=== PATIENT | female | born 1980 | race Caucasian/White ===

== ENCOUNTER 2021-06-06 09:01 | Inpatient (IN) ==
[2021-06-06] MEDS ORDERED: *HR* LORazepam 2 MG/ML VIAL IVP ONE ×2 (09:20→10:11)
[2021-06-06 09:45] LABS: Basophils # 0.1 K/mcL (0.0-0.2); Eosinophils # 0.1 K/mcL (0.0-0.6); Hematocrit 42.8 % (35.3-44.9); Immature Granulocytes % 0.6 % (0-4); Lymphocytes # 2.2 K/mcL (0.6-4.6); Lymphocytes % 22.4 %; Mean Corpuscular HGB Conc 34.1 g/dL (31.6-35.5); Mean Corpuscular Volume 99.5 fL (83.0-100.0); Mean Platelet Volume 10.2 fL (9.4-12.4); Monocytes # 0.6 K/mcL (0.0-1.3); Monocytes % 5.5 %; Platelet Count 201 K/mcL (140-400); Segmented Neutrophils % 69.5 %
[2021-06-06 09:46] LABS: Bilirubin,Urine Negative (Negative); Blood,Urine Trace (Negative); Clarity,Urine Clear (Clear); Color,Urine Light-Yellow (Yellow); Glucose,Urine (UA) Normal (Normal); Ketones,Urine Negative (Negative); Leukocyte Esterase,Urine Negative (Negative); Mucus,Urine Few per lpf (None-Few); Nitrite,Urine Negative (Negative); Protein,Urine Negative (Neg-Trace); RBC,Urine 0-3 per hpf (0-3); Squamous Epithelial Cell,Urine Few per hpf (None-Few); Urobilinogen,Urine Normal (Normal); WBC,Urine 0-3 per hpf (0-3)
[2021-06-06 09:46] LABS: Hemoglobin 14.6 g/dL (11.5-15.4)
[2021-06-06 09:53] LABS: Prothrombin Time 11.6 Seconds (9.4-12.1)
[2021-06-06 09:56] LABS: Activated Partial Thrombo Time 32.5 Seconds (26.0-36.0)
[2021-06-06 10:05] LABS: Estimated Average Glucose 94 mg/dl; Hemoglobin A1C 4.9 %
[2021-06-06 10:08] LABS: Acetaminophen < 10 mcg/mL (10-20); BUN/Creatinine Ratio 18 (6-26); Blood Urea Nitrogen 14 mg/dL (6-20); Calcium 9.3 mg/dL (8.6-10.3); Carbon Dioxide 25 mEq/L (23-29); Chloride 103 mEq/L (98-107); Chol/HDL Ratio 1.7 (0-4.9); Cholesterol 135 mg/dL (< 200); Ethanol < 10 mg/dL (Less than 10); Glucose 114 mg/dL (70-105); HDL Cholesterol 78 mg/dL (40-59); LDL Cholesterol,Calculated 48 mg/dL (< 100); Lipase 28 Units/L (11-82); Osmolality,Calculated 279 (280-300); Salicylate < 2.5 mg/dL (15.0-30.0); Sodium 134 mEq/L (136-145); Triglycerides 46 mg/dL (< 150); Troponin I < 0.03 ng/mL (< 0.04); eGFR For African Americans > 60 (> 60); eGFR For Non-African Americans > 60 (> 60)
[2021-06-06 10:20] LABS: Thyroid Stimulating Hormone 0.638 mcIU/mL (0.340-5.600)
[2021-06-06 10:33] LABS: Amphetamine Screen,Urine Negative ng/mL (Cutoff=1000); Barbiturate Screen,Urine Negative ng/mL (Cutoff=200); Benzodiazepines Screen,Urine Negative ng/mL (Cutoff=200); Cannabinoid Screen,Urine Positive ng/mL (Cutoff = 50); Cocaine Screen,Urine Negative ng/mL (Cutoff= 300); Opiate Screen,Urine Negative ng/mL (Cutoff=300); Phencyclidine Screen,Urine Negative ng/mL (Cutoff=25)
[2021-06-06 13:13] LABS: Influenza A PCR Negative (Negative); Influenza B PCR Negative (Negative); Resp. Syncytial Virus PCR Negative (Negative)
[2021-06-06 13:19] LABS: SARS-CoV-2 by PCR (In House) Negative (Negative)
[2021-06-06] MEDS ORDERED: Mag Hydrox/Al Hydrox/Simeth 30 ML UDC PO PRN (14:25)
[2021-06-06] MEDS ORDERED: haloperidoL 5 MG TABLET PO PRN (14:25)
[2021-06-06] MEDS ORDERED: Acetaminophen 325 MG TABLET PO PRN (14:25)
[2021-06-06] MEDS ORDERED: MOM Conc 10 ML UD.LIQ PO PRN (14:25)
[2021-06-06] MEDS ORDERED: Haloperidol Lactate 5 MG/ML VIAL IM PRN (14:25)
[2021-06-06] MEDS ORDERED: *HR* LORazepam 2 MG/ML VIAL IM PRN (14:25)
[2021-06-06] MEDS ORDERED: *HR* LORazepam 1 MG TABLET PO PRN (14:25)
[2021-06-06] MEDS: hydrOXYzine pamoate 25 MG CAPSULE PO PRN ×2 (15:51→20:47)
[2021-06-06] MEDS: Nicotine 21 MG PATCH.TD24 TD SCH (15:56)
[2021-06-06] MEDS: traZODone 50 MG TABLET PO PRN (20:47)
[2021-06-07] MEDS: hydrOXYzine pamoate 25 MG CAPSULE PO PRN ×4 (05:25→20:46)
[2021-06-07] MEDS: Nicotine 21 MG PATCH.TD24 TD SCH (07:55)
[2021-06-07] MEDS ORDERED: ARIPiprazole 10 MG TABLET PO SCH (13:45)
[2021-06-07] MEDS ORDERED: clonazePAM 1 MG TABLET PO ONE (14:00)
[2021-06-07] MEDS: traZODone 50 MG TABLET PO PRN (20:46)
[2021-06-07] MEDS: lamoTRIgine 25 MG TABLET PO SCH (20:46)
[2021-06-08] MEDS: hydrOXYzine pamoate 25 MG CAPSULE PO PRN ×3 (06:42→20:58)
[2021-06-08] MEDS ORDERED: clonazePAM 1 MG TABLET PO ONE (07:26)
[2021-06-08] MEDS ORDERED: ARIPiprazole 10 MG TABLET PO SCH ×2 (09:00→09:15)
[2021-06-08] MEDS ORDERED: cephALEXin 500 MG CAPSULE PO SCH (09:15)
[2021-06-08] MEDS: Nicotine 21 MG PATCH.TD24 TD SCH (09:25)
[2021-06-08] MEDS ORDERED: *HR* LORazepam 1 MG TABLET PO ONE (11:07)
[2021-06-08] MEDS ORDERED: ARIPiprazole 5 MG TABLET PO SCH (13:00)
[2021-06-08] MEDS: lamoTRIgine 25 MG TABLET PO SCH (20:57)
[2021-06-08] MEDS: traZODone 50 MG TABLET PO PRN (20:58)
[2021-06-08 22:42] VITALS: PULSE 63
[2021-06-09 08:00] VITALS: BP 111/17; TEMP 97.5; O2SAT 98
[2021-06-09] MEDS: Nicotine 21 MG PATCH.TD24 TD SCH (08:16)
[2021-06-09] MEDS: hydrOXYzine pamoate 25 MG CAPSULE PO PRN (08:36)
[2021-06-09] MEDS ORDERED: ARIPiprazole 10 MG TABLET PO SCH (09:00)
== END 2021-06-09 13:08 | disposition other institution (70) | DRG 753 ==
LOC: EMEROOARM 09:01 → 1ANU 14:08 → SUATTDRO 14:08 → 1ANU 15:00
PROVIDERS: ADMIT Psychiatry & Neurology Psychiatry; ATTEND Psychiatry & Neurology Psychiatry